=== PATIENT | male | born 1935 ===

== ENCOUNTER 2017-09-23 07:07 | Day surgery (SDC) | payer OTHER ==
[2017-09-18 13:39] VITALS: BMI 21.9
[2017-09-23] MEDS ORDERED: cefTRIAXone IV 1 gm in Dextros 50 ML IVPB ONE (07:55)
[2017-09-23] MEDS ORDERED: Lidocaine 2% Jelly (Uro-Jet) ONE (07:55)
[2017-09-23] MEDS: Iohexol 240 (50 ml) ONE ×2 (09:13→09:26)
[2017-09-23] MEDS ORDERED: Midazolam 2 MG/2 ML VIAL ONE (09:20)
[2017-09-23] MEDS ORDERED: Propofol 10 mg/ml Inj (20 ML) ONE (09:22)
[2017-09-23] MEDS ORDERED: HYDROmorphone 0.5 mg/0.5 ml ISec IVP PRN ×2 (09:40→09:44)
--- NOTE | 2017-09-23 09:42 | PCM.SURG1 ---
Surgeon's Initial Post Op Note - Surgeon's Notes Surgeon: Osvaldo Santillan Sound Designer: none Type of Anesthesia: IV Sedation Pre-Operative Diagnosis: Hx of bladder cancer Operative Findings: filling defect L lower pole collecting system. bph. No bladder tumor or stone Post-Operative Diagnosis: same Operation Performed: cysto, bilat rtg pyelogram. EUA Specimen/Specimens Removed: urine Estimated Blood Loss: EBL {In ML}: 0 Blood Products Given: N/A Drains Used: No Drains Post-Op Condition: Good Date of Surgery/Procedure: 09/23/17 Time of Surgery/Procedure: 09:40
[2017-09-23 10:57] VITALS: O2SAT 95
--- NOTE | 2017-09-23 11:18 | RAD ---
PROCEDURE: Intraoperative Fluoroscopy. HISTORY: HX. OF BLADDER CA. FINDINGS: Fluoroscopic assistance was provided. 14.7 seconds fluoroscopy time utilized. Radiation dose = 0.28594 mGy- Please refer to the operative report from Dr. MONROY, [facility].
[2017-09-23 12:10] VITALS: BP 160/66; PULSE 71; RESP 15; TEMP 97.8
--- NOTE | 2017-09-23 12:13 | RAD ---
HISTORY: History of bladder carcinoma COMPARISON: Comparison made with abdominal radiograph 03/22/[address] scan abdomen pelvis 09/16/2015. FINDINGS: BOWEL: Nonobstructive/nonspecific bowel gas pattern. BONES: Osseous structures appear intact. Minor degenerative spondylosis with minimal levoscoliosis centered in the mid lumbar region. OTHER FINDINGS: None. No acute mechanical bowel obstruction. IMPRESSION: No acute findings.
--- NOTE | 2017-09-24 15:48 | OP ---
PROCEDURE DATE: 09/23/2017 PREOPERATIVE DIAGNOSIS: History of bladder tumor. POSTOPERATIVE DIAGNOSES: History of bladder tumor. No recurrent bladder tumor. Possible filling defect of left lower pole collecting system. PROCEDURES: Cystoscopy. Bilateral retrograde pyelogram. Exam under the anesthesia. OPERATING SURGEON: Mami Santillan M.D. DESCRIPTION OF PROCEDURE: Procedure was performed under video endoscopic control as well as under fluoroscopic control. The patient was placed into the lithotomy position. The patient received perioperative antibiotics. Anesthesia was provided by the anesthesiologist with IV sedation. A 22-[place]ux[place] cystoscope sheath was introduced under direct vision. The urethra, prostate, and bladder were inspected with 30-degree and subsequently 70-degree lenses. FINDINGS: There was no stricture in the anterior urethra. There was evidence of prostatic hypertrophy which was occlusive. There were no mucosal lesions within the prostatic urethra. There was no bladder neck contraction. There was no bladder tumor. There was no bladder stone. The sites of the previous tumor resection were identified as pale scars. The ureteral orifices were normal in position and shape. There was no bladder diverticulum. The bladder contour was normal. Occlusive tip retrograde ureteropyelogram was performed. Iodinated contrast was instilled via cone-tip catheter into each ureteral orifice. The ureters and the kidneys were viewed sequentially with fluoroscopy. FINDINGS: The retrograde pyelogram demonstrated no evidence of obstruction of the ureters. The right renal collecting system was normal. There was a possible filling defect within the left lower pole collecting system. Post-drainage film demonstrated good drainage from each kidney. The bladder was reinspected with 70-degree lens and confirmed the above findings. The bladder was then drained. Cystoscope and sheath were removed. The rectal examination was performed. There was no abnormal pelvic mass fixation or induration. Prostate was supple and smooth without nodularity. Prostate was approximately 30 g in size. The patient tolerated the procedure without complication. Mami Santillan MD
== END 2017-09-23 11:36 | disposition home or self-care (01) ==
LOC: C.SDS 07:07
PROVIDERS: ATTEND Urology
DX: C67.9 Malignant neoplasm of bladder, unspecified (principal); N40.0 Benign prostatic hyperplasia without lower urinary tract symptoms
CPT/HCPCS: 52005; 74018; C1758; J0696; Q9966

== ENCOUNTER 2018-04-14 07:57 | Day surgery (SDC) | payer OTHER ==
[2017-09-18 13:37] VITALS: BMI 21.9
[2018-04-14] MEDS ORDERED: Midazolam 2 MG/2 ML VIAL ONE (09:40)
[2018-04-14] MEDS ORDERED: Propofol 10 mg/ml Inj (20 ML) ONE (09:40)
[2018-04-14] MEDS ORDERED: HYDROmorphone 0.5 mg/0.5 ml ISec IVP PRN (10:23)
--- NOTE | 2018-04-14 10:24 | PCM.SURG1 ---
Surgeon's Initial Post Op Note - Surgeon's Notes Surgeon: Osvaldo Santillan Medical Office Professional Instructor: none Type of Anesthesia: General Mask Pre-Operative Diagnosis: Bladder tumor Operative Findings: No recurrent bladder tumor. BPH. Bladder calculi. Normal L kidney and ureter. Unable to cathetrize R ureter Post-Operative Diagnosis: same Operation Performed: cysto,. removal of bladdr claculi. L rtg pyelogram. attempted R rtg pyelogram. EUA Specimen/Specimens Removed: urine Estimated Blood Loss: EBL {In ML}: 0 Blood Products Given: N/A Post-Op Condition: Good Date of Surgery/Procedure: 04/14/18 Time of Surgery/Procedure: 10:23
[2018-04-14 11:27] VITALS: BP 127/80; PULSE 70; RESP 18; TEMP 98; O2SAT 98
--- NOTE | 2018-04-14 14:14 | RAD ---
Date of service: 04/14/2018 PROCEDURE: Intraoperative Fluoroscopy. HISTORY: HX. OF BLADDER CA./BLADDER STONE FINDINGS: Fluoroscopic assistance was provided. Fluoroscopy time = 8.6 sec. Radiation dose = 0.06288 mGy-cm. Please refer to the operative report from Dr. MONROY, [place].
--- NOTE | 2018-04-15 17:06 | OP ---
PROCEDURE DATE: 04/14/2018 PREOPERATIVE DIAGNOSIS: History of bladder tumor. POSTOPERATIVE DIAGNOSES: History of bladder tumor. No recurrent bladder tumor. Bladder calculi. Benign prostatic hypertrophy. PROCEDURES: Cystoscopy. Left retrograde pyelogram. Attempted right retrograde pyelogram. Removal of bladder stones. Exam under anesthesia. OPERATING SURGEON: Mami Santillan MD. Procedure was performed under video endoscopic control as well as under fluoroscopic control. Procedure as follows. The patient received perioperative antibiotics. The anesthesia was provided by the anesthesiologist. A 22-Yor[place] cystoscope sheath was introduced under direct vision. Urethra, prostate, bladder were inspected with 30 degree and 70 degree lenses. FINDINGS: There was no stricture in the anterior urethra. There is evidence of trilobar prostatic hypertrophy. Prostatic urethra was approximately 3.5 cm in length. There was moderate bladder trabeculation. There was no bladder tumor. The bladder mucosa was normal. The area of scar of the previous bladder tumor on the anterior wall was identified. The dome of the bladder was identified. There was no tumor. There was no diverticulum. There were many tiny small sand like yellow particles within the bladder. These were removed both with a biopsy forceps and by irrigation. However, the stones were too small to retrieve and sent for analysis. The appeared to be uric acid stones by their yellow color and sand like nature. Occlusive tip left retrograde ureteral pyelogram was performed. Iodinated contrast dye was instilled via cone-tip catheter into left ureteral orifice. Left retrograde pyelogram demonstrated no evidence of filling defect or obstruction. Similar performance of the right retrograde pyelogram through the right ureteral orifice performed. The iodinated contrast dye was instilled. However, the contrast flowed back into the bladder and into the ureter. Attempted catheterization with a guidewire and was performed as well. However, the guidewire could not be inserted. The bladder was reinspected with 70 degree lens and confirmed the above findings. The bladder was then drained. Cystoscope sheath removed. Rectal examination/exam under anesthesia was performed. There was no abnormal pelvic mass fixation or induration. Prostate was supple and smooth approximately 25 g in size, without fixation, induration or nodularity. The patient tolerated procedure without complication. Mami Santillan MD
== END 2018-04-14 11:43 | disposition home or self-care (01) ==
LOC: C.SDS 07:57
PROVIDERS: ATTEND Urology
DX: N21.0 Calculus in bladder (principal); N40.0 Benign prostatic hyperplasia without lower urinary tract symptoms; Z85.51 Personal history of malignant neoplasm of bladder

== ENCOUNTER 2018-07-01 06:54 | Day surgery (SDC) | payer OTHER ==
[2017-09-18 13:37] VITALS: BMI 21.9
[2018-07-01] MEDS ORDERED: ceFAZolin 1 gm in NS 1 GM/100 ML BAG IVPB ONE (07:30)
[2018-07-01 07:48] VITALS: O2SAT 96
[2018-07-01] MEDS ORDERED: Acetaminophen-Codeine 300/30 mg Tab PO PRN (08:08)
[2018-07-01] MEDS ORDERED: Dextrose 5%/0.45% NS 1,000 ML IV SCH (08:15)
[2018-07-01] MEDS ORDERED: Propofol 10 mg/ml Inj (20 ML) ONE (09:13)
[2018-07-01] MEDS ORDERED: Succinylcholine Chloride 20 mg/ml Syr (5 ml) IV ONE (09:20)
[2018-07-01] MEDS ORDERED: HYDROmorphone 0.5 mg/0.5 ml ISec IVP PRN (09:41)
[2018-07-01 11:03] VITALS: BP 136/74; PULSE 85; RESP 16; TEMP 97
--- NOTE | 2018-07-01 20:09 | OP ---
PROCEDURE DATE: 07/01/2018 PREOPERATIVE DIAGNOSIS: Hoarseness and irregular border of the right vocal cord. POSTOPERATIVE DIAGNOSIS: Hoarseness and irregular border of the right vocal cord. PROCEDURE: Micro-direct laryngoscopy with biopsy. SURGEON: Raudel Arias MD SIGNIFICANT FINDINGS: Irregular border of the right vocal cord. DESCRIPTION OF PROCEDURE: The patient was brought into the room, placed in a supine position. Anesthesia was initiated through an ET tube. Shoulder roll was placed, neck extended. The patient was draped in usual manner. Direct laryngoscope was inserted into the oral cavity, passed through the oropharynx and hypopharynx. The pharyngeal coffey, base of tongue, vallecula, epiglottis, AE folds, false cords, true cords, arytenoids, and piriform sinuses were brought into view. The right vocal cord was brought into view. The direct laryngoscope was suspended on the [employer] usual manner. Microscope was brought into position to view the right vocal cord. Irregular borders were noted and multiple biopsies were taken. Bleeding was controlled using cold water irrigation. The direct laryngoscope was taken off suspension and removed. The microscope was taken out of position. The patient was taken off anesthesia and taken to recovery room in stable manner. Raudel Arias MD
== END 2018-07-01 12:36 | disposition home or self-care (01) ==
LOC: C.SDS 06:54
PROVIDERS: ATTEND Otolaryngology
DX: C32.0 Malignant neoplasm of glottis (principal); R49.0 Dysphonia; I10 Essential (primary) hypertension
CPT/HCPCS: 31536; 87070; 88305; J0690; J2704; J3010; J7040; J7120